=== PATIENT | female | born 1955 | race Hispanic/Latino ===

== ENCOUNTER 2019-01-23 09:06 | Day surgery (SDC) | payer MEDICARE ==
[~2019-01-23] VITALS: Ht 154.9 cm; Wt 55.3 kg
[~2019-01-23 09:06] MED LIST: ALEN70TA10 PO; ASPI-555 PO; ATOR10TA69 PO; BUSP10TA3 PO; GLYCOPYRROLATE 0.2 MG/ML 5 ML VIAL ONE; LIDOCAINE HCL-MPF 2% 5ML VIAL ONE; LOSA100T58 PO; MAGN200T4 PO; METF-446 PO; PROM25TA7 PO; PROPOFOL 1000 MG/100 ML 100 ML IV ONE; SERT100T12 PO; SODIUM CHLORIDE 0.9% 1000ML 1,000 ML IV ONE; TRAZ-187 PO; ZOLOFT
[2019-01-23 10:50] VITALS: BP 135/56
[2019-01-23 12:30] VITALS: BP 132/58
[2019-01-23 12:37] VITALS: BP 149/72
[2019-01-23 12:43] VITALS: BP 155/73
[2019-01-23 13:00] VITALS: BP 159/66
[2019-01-23 13:15] VITALS: BP 150/70
== END 2019-01-23 13:30 | disposition home or self-care (01) ==
LOC: ENDO 09:06 → DAH 09:06 → ENDO 13:30
PROVIDERS: ATTEND Internal Medicine Gastroenterology
DX: K92.1 Melena (principal); D12.0 Benign neoplasm of cecum; K29.50 Unspecified chronic gastritis without bleeding; K29.80 Duodenitis without bleeding; K57.30 Diverticulosis of large intestine without perforation or abscess without bleeding; K64.1 Second degree hemorrhoids; K44.9 Diaphragmatic hernia without obstruction or gangrene; K22.8 Other specified diseases of esophagus; K31.89 Other diseases of stomach and duodenum; Z79.84 Long term (current) use of oral hypoglycemic drugs; Z79.899 Other long term (current) drug therapy; I10 Essential (primary) hypertension; E11.9 Type 2 diabetes mellitus without complications; I25.10 Atherosclerotic heart disease of native coronary artery without angina pectoris; F32.9 Major depressive disorder, single episode, unspecified; F41.9 Anxiety disorder, unspecified; Z86.73 Personal history of transient ischemic attack (TIA), and cerebral infarction without residual deficits; Z90.49 Acquired absence of other specified parts of digestive tract; Z98.61 Coronary angioplasty status
CPT/HCPCS: 43239; 45380; 82948 ×2; 88305; 88342; A4606; J2704; J3490 ×2; J7030